=== PATIENT | male | born 1995 | race Two or more races ===

== ENCOUNTER 2024-03-23 10:23 | Emergency (ER) | payer OTHER ==
[~2024-03-23] VITALS: Ht 167.6 cm; Wt 74.8 kg
[2024-03-23 10:45] VITALS: BP 100/60; TEMP 98.6
[2024-03-23 11:10] VITALS: O2SAT 99
== END 2024-03-23 11:14 | disposition home or self-care (01) ==
LOC: ER 10:29
DX: S86.811A Strain of other muscle(s) and tendon(s) at lower leg level, right leg, initial encounter (principal); X58.XXXA Exposure to other specified factors, initial encounter; Y93.89 Activity, other specified; Y92.89 Other specified places as the place of occurrence of the external cause; Y99.0 Civilian activity done for income or pay